=== PATIENT | female | born 1945 ===

== ENCOUNTER 2023-01-15 07:08 | Day surgery (SDC) | payer OTHER ==
[~2023-01-15] VITALS: Ht 162.6 cm; Wt 76.7 kg
[~2023-01-15 07:08] MED LIST: AVAPRO150 MG PO; GLUMETZA500 MG PO; NORVASC5 MG PO; SIMVASTATIN5 MG PO
[2023-01-15] MEDS ORDERED: PERCOCET 5-3251 EACH PO (12:37)
== END 2023-01-15 17:00 | disposition home or self-care (01) ==
LOC: CIR.AMB 07:08
PROVIDERS: ATTEND Surgery
DX: D35.1 Benign neoplasm of parathyroid gland (principal); E21.0 Primary hyperparathyroidism; Z88.0 Allergy status to penicillin; Z88.6 Allergy status to analgesic agent; Z20.822 Contact with and (suspected) exposure to COVID-19